=== PATIENT | female | born 1990 | race Caucasian/White ===

== ENCOUNTER 2017-04-24 04:21 | Inpatient (IN) ==
[2017-04-24] MEDS ORDERED: MAG-AL + SIM ORAL LIQUID 30ml PO PRN ×2 (06:10→14:23)
[2017-04-24] MEDS ORDERED: METHYLERGONOVINE 0.2 MG/ML INJECTION IM PRN (06:10)
[2017-04-24] MEDS ORDERED: ACETAMINOPHEN 500 MG TABLET PO PRN ×2 (06:10→14:23)
[2017-04-24] MEDS ORDERED: D5LR 1,000 ML IV PRN (06:10)
[2017-04-24] MEDS ORDERED: CALCIUM CARBONATE Chewable 500mg TABLET PO PRN ×2 (06:10→14:23)
[2017-04-24] MEDS ORDERED: OXYTOCIN DRIP 30 UNIT/500 ML ML IV PRN (06:10)
[2017-04-24] MEDS ORDERED: CARBOPROST 250 MCG/ML INJECTION IM PRN (06:10)
[2017-04-24] MEDS ORDERED: LIDOCAINE 1% (10mg/ml) 2mL INJ PF SDV ID PRN (06:10)
[2017-04-24] MEDS: LR 1,000 ML IV PRN ×2 (06:39→09:32)
--- NOTE | 2017-04-24 08:55 | Anesthesia Preoperative Report ---
Anesthesia Epidural/Spinal Rec - Date and Time Date: 04/24/17 Procedure: Labor Epidural Plan: Epidural - Vital Signs Vital Signs: Temperature 98.4 F 04/24/17 06:30 Pulse Rate 88 04/24/17 06:30 Respiratory Rate 12 04/24/17 06:30 Blood Pressure 121/76 04/24/17 06:30 Pulse Oximetry 98 04/24/17 08:12 Oxygen Delivery Method Room Air /Para: P:1 Heart Rate: 130 - Medictaions & Allergies Inpatient Medications: Current Medications Acetaminophen (Tylenol) 500 - 1,000 mg PO Q4H PRN PRN Reason: Pain Al Hydroxide/Mg Hydroxide (Maalox Plus) 30 ml PO Q3H PRN PRN Reason: Indigestion Calcium Carbonate (Tums) 500 - 1,000 mg PO Q2H PRN PRN Reason: Indigestion Carboprost Tromethamine (Hemabate) 250 mcg IM O PRN PRN Reason: .Downtime Dextrose/Lactated Ringer's (Dextrose 5%-Lactated Ringers) 1,000 mls @ 125 mls/ hr IV .Q8H PRN PRN Reason: Labor Last Admin: 04/24/17 06:49 Dose: 125 mls/hr Lactated Ringer's (Lactated Ringers) 1,000 mls @ 1,000 mls/hr IV .Q1H PRN PRN Reason: as directed Last Admin: 04/24/17 06:39 Dose: 1,000 mls/hr Oxytocin (Pitocin Drip) 30 unit in 500 mls @ 2 mls/hr IV .Q24H PRN; Protocol PRN Reason: Induction/Augmentation Last Admin: 04/24/17 06:50 Dose: 2 mls/hr Lidocaine HCl (Xylocaine-Mpf 1% Vial) 0.2 mg ID O PRN PRN Reason: IV Start Methylergonovine Maleate (Methergine) 0.2 mg IM O PRN Misoprostol (Cytotec) 800 mcg ND ONCE PRN Allergies/Adverse Reactions: Allergies Allergy/AdvReac Type Severity Reaction Status Date / Time No Known Allergies Allergy Unverified 11/19/13 10:32 - Home Medications Home Medications: Home Medications Medication Instructions Recorded Confirmed Type Vitamins 04/16/17 History - Medical History Respiratory: DENIES: Asthma, Bronchitis, Chronic Obstructive Pulmonary Disease (COPD), Dyspnea, Orthopnea, Pulmonary Embolism, Pneumonia, Upper Respiratory Infection, Pulmonary Edema, Sleep Apnea, Tuberculosis, Other Cardiovascular: DENIES: Abnormal EKG, Angina, Arrhythmia, Congestive Heart Failure, Coronary Artery Disease, Heart Murmur, Hypertension, Hypotension, High Cholesterol, Myocardial Infarction, Rheumatic Fever, Valvular Heart Disease, Other Gastrointestional: DENIES: Obstructive Bowel, Hepatitis, Cirrhosis, Nausea or Vomiting Present, Gastroesophageal Reflux Disease, Gastrointestinal Bleeding, Hiatal Hernia, Ulcer , Morbid Obesity, Other Neuro/Musculoskeletal: Denies: HX.MS.OSAR, Back Problems, Cerebrovascular Accident, Depression, Headaches, Loss of Consciousness, Muscle Weakness, Neuromuscular Disorder, Paralysis, Paresthesia, Syncope, Seizures, Other Renal/Endocrine: DENIES: Diabetes Mellitus Type 1, Diabetes Mellitus Type 2, Renal Failure, Dialysis, Thyroid Disease, Weight Loss, Weight Gain, Other Other History: DENIES: Anesthesia Reactions, Now, Blood Transfusions, Chemotherapy , Cancer, Hemophilia, Malignant Hyperthermia, Sickle Cell Disease, Other - Surgical History Anesthesia Reactions: None Hx Family Anesthesia Reaction: No History of Motion Sickness: No - Social History Smoking Status: Never smoker Second Hand Exposure: No Substance Use Type: does not use Alcohol Intake Frequency: does not drink Hx Chewing Tobacco Use: No - Pertinent Findings Lab Data: CBC and BMP 04/24/17 06:31 - Physical Exam Respiratory Exam: lungs clear, bilateral breath sounds equal Cardiovascular Exam: regular rate and rhythm, no murmur - Airway Assessment Mallampati Score: I TMD: 3 Fingerbreadths Neck Extension: good Overall Assessment: no airway concerns - ASA ASA Score: 2 - Discussion Discussion: Discussed risks/options/alternatives of anesthesia and questions answered. Patient consents. Nursing pain assessment noted. Attestation Statement: Prior to the delivery of any anesthetic medication, I examined the patient, developed the plan, obtained the patient's consent and discussed the risk and benefits of the procedure with the patient/guardian.
[2017-04-24 09:08] VITALS: BMI 28.9
[2017-04-24] MEDS ORDERED: SUFentanil 50 MCG, ROPIVACAINE 0.2% 2MG/ML INJ 40 MG in NS 100 ML IVP ONE (12:00)
[2017-04-24] MEDS ORDERED: SALINE FLUSH 10ml SYRINGE IVF PRN (14:23)
[2017-04-24] MEDS ORDERED: HYDROCODONE/APAP 5mg/325mg TABLET PO PRN (14:23)
[2017-04-24] MEDS ORDERED: BENZOCAINE 20% SPRAY 0.5 ML MM ONE (14:23)
[2017-04-24] MEDS ORDERED: DiphenhydrAMINE 25 MG CAPSULE PO PRN (14:23)
[2017-04-24] MEDS ORDERED: HYDROCORTISONE 2.5% CREAM 30gm RECTALLY PRN (14:23)
[2017-04-24] MEDS: OXYTOCIN DRIP 30 UNIT/500 ML ML IV SCH ×2 (15:48→21:38)
[2017-04-24] MEDS: IBUPROFEN 800 MG TABLET PO PRN (16:19)
--- NOTE | 2017-04-25 07:58 | OB/GYN Progress Note ---
OB-Progress Note Free Text - Date Date: 04/25/17 - Progress Note Progress Note: vss af no c/o doing well hbg noted cont routine care path.
[2017-04-25] MEDS ORDERED: DOCUSATE CALCIUM 240 MG CAPSULE PO SCH (09:00)
--- NOTE | 2017-04-25 09:39 | Anesthesia Postoperative Note ---
- Date and Time Date: 04/25/17 Time: 09:39 - Status Patient Participated in Evaluation: Patient Participated in Person Vital Signs: Temperature 98.4 F 04/25/17 07:57 Pulse Rate 96 04/25/17 07:57 Respiratory Rate 20 04/25/17 07:57 Blood Pressure 112/64 04/25/17 07:57 Pulse Oximetry 100 04/25/17 07:57 Oxygen Delivery Method Room Air Respiratory Function: Airway Patent, Regular Respirations Cardiovascular Function: Regular Pulse Mental Status: Alert and Oriented Pain Intensity: 0 Hydration: Taking PO Fluids Complications During Recover: None Apparent - Follow-Up Instructions Instructions: Per Surgeon
[2017-04-25] MEDS: IBUPROFEN 800 MG TABLET PO PRN (10:34)
--- NOTE | 2017-04-25 12:48 | Labor and Delivery Note ---
DATE OF DELIVERY: 04/24/2017 DIAGNOSES 1. 27-year-old, G2, P1, at 39.6 weeks gestational age. 2. Pitocin induction of labor for logistics. 3. Epidural anesthesia. 4. Artificial rupture of membranes. 5. Spontaneous vaginal delivery. 6. Female , Apgars, 4077 g (Marni Jason), 9 pounds. 7. Second-degree perineal laceration - repaired. This is a patient of mine that was brought in for induction on 04/24/2017. Pitocin reached a maximum of [address] Ibrahim performed AROM for me at 0952 hours after the patient had gotten her epidural. She was 5-6 cm at that time. She continued to progress and we were able to turn the Pitocin in half to 10. She made it to complete dilation and then we began pushing. Spontaneous vaginal delivery occurred very shortly thereafter at 1306 hours. was bulb suctioned after delivery of the head and then again after delivery of the body. Cord was allowed to drain for about a minute and a half and then it was doubly clamped and cut. was initially placed on the mother's abdomen. Placenta delivered spontaneously at 1313 hours. There was a second-degree perineal laceration that was repaired with 2-0 Vicryl and 3-0 chromic closed the skin on the top. EBL was 300 ml. MTDD
--- NOTE | 2017-04-25 13:53 | Discharge Instructions ---
Discharge Plan - Med Rec/Dispo Referrals/Follow Up: Jose Cruz Mckoy MD [Physician] - 5-6 Weeks Prescriptions: New Ibuprofen [Motrin] 800 mg PO Q8H PRN #30 tablet PRN Reason: Pain - Disposition 01 Discharged Home, Self-Care
[2017-04-25 21:07] VITALS: BP 111/60; PULSE 106; RESP 18; TEMP 98.3; O2SAT 99
== END 2017-04-25 17:25 | disposition home or self-care (01) | DRG 775 ==
LOC: MC 06:02
PROVIDERS: ADMIT Obstetrics & Gynecology; ATTEND Obstetrics & Gynecology